=== PATIENT | male | born 2000 | race African-American/Black ===

== ENCOUNTER 2020-10-30 01:34 | Emergency (ER) | payer OTHER, SELFPAY ==
[2020-10-30] MEDS ORDERED: NA CHLORIDE 0.9% 1,000 ML ONE (02:54)
[2020-10-30 02:56] LABS: Absolute Lymphocytes (CBC) 1.6 K/uL (0.7-4.9); Basophils % 0.4 % (0-1.3); Hematocrit 39.7 % (39.6-49.0); Lymphocytes % 19.8 % (15.3-44.8); MPV 10.3 fL (7.6-11.3); RBC Red Blood Cell Count 4.53 M/uL (4.33-5.43)
[2020-10-30 02:58] LABS: Protime INR 1.08
[2020-10-30 03:07] LABS: ALT/SGPT 15 U/L (12-78); AST/SGOT 13 U/L (15-37); Albumin 4.3 g/dL (3.4-5.0); Alkaline Phosphatase 76 U/L (45-117); BUN Blood Urea Nitrogen 7 mg/dL (7-18); Bicarbonate 30 mmol/L (21-32); Bilirubin Direct 0.3 mg/dL (0-0.2); Glucose Level 92 mg/dL (74-106); Magnesium 1.9 mg/dL (1.8-2.4); NT PRO-BNP 19 pg/mL (<125); Potassium 3.4 mmol/L (3.5-5.1); Protein, Total 7.9 g/dL (6.4-8.2); Sodium Level 142 mmol/L (136-145); Troponin (Emerg Dept Use Only) < 0.02 ng/mL (0.0-0.045)
[2020-10-30 03:17] LABS: Urine Blood Negative (Negative); Urine Glucose Negative (Negative); Urine Protein Trace (Negative)
[2020-10-30 03:54] LABS: Barbiturates NEGATIVE (NEGATIVE); Benzodiazepines NEGATIVE (NEGATIVE); Cocaine NEGATIVE (NEGATIVE); METHAMPHETAM NEGATIVE (NEGATIVE); Methadone NEGATIVE (NEGATIVE); Opiates NEGATIVE (NEGATIVE); Phencyclidine NEGATIVE (NEGATIVE); THC Cannibis NEGATIVE (NEGATIVE)
[2020-10-30] MEDS ORDERED: LORazepam 2 MG/ML VIAL ONE (04:11)
[2020-10-30] MEDS ORDERED: POTASSIUM CL SA 10 MEQ TAB PO ONE (04:12)
[2020-10-30 04:15] LABS: Urine Bacteria <20 /HPF (NONE SEEN); Urine RBC <5 /HPF (NONE SEEN); Urine Urothelial Cells <5 /HPF (NONE SEEN)
--- NOTE | 2020-10-30 04:39 | EDPHYS ---
Physician Documentation [facility] Name: Yong Rojas Age: 20 yrs Sex: Male : 2000 Arrival Date: 10/30/2020 Time: 01:48 Bed 13 Private MD: ED Physician Waldemar Carvalho HPI: 10/30 02:34 This 20 yrs old Black Male presents to ER via Ambulatory with unknown complaint. pkl 02:34 The patient or guardian reports chest pain that is located primarily in the substernal pkl area. The pain does not radiate. Associated signs and symptoms: Pertinent positives: shortness of breath, numbness both arms. The chest pain is described as dull. Historical: - Allergies: 02:05 No Known Allergies; em - PMHx: 02:05 None; em - PSHx: 02:05 None; em - Immunization history:: Adult Immunizations not up to date. - Social history:: Smoking status: Patient denies any tobacco usage or history of. ROS: 02:34 Eyes: Negative for injury, pain, redness, and discharge, ENT: Negative for injury, pkl pain, and discharge, Neck: Negative for injury, pain, and swelling. 02:34 Cardiovascular: Positive for chest pain. 02:34 Respiratory: Positive for shortness of breath. 02:34 Abdomen/GI: Negative for abdominal pain, nausea, vomiting, and diarrhea. 02:34 Back: Negative for acute changes. 02:34 : Negative for urinary symptoms. 02:34 MS/extremity: Negative for acute changes. 02:34 Skin: Negative for rash. 02:34 Neuro: Negative for altered mental status, loss of consciousness. Exam: 02:34 Head/Face: Normocephalic, atraumatic. Eyes: Pupils equal round and reactive to light, pkl extra-ocular motions intact. Lids and lashes normal. Conjunctiva and sclera are non-icteric and not injected. Cornea within normal limits. Periorbital areas with no swelling, redness, or edema. ENT: Nares patent. No nasal discharge, no septal abnormalities noted. Tympanic membranes are normal and external auditory canals are clear. Oropharynx with no redness, swelling, or masses, exudates, or evidence of obstruction, uvula midline. Mucous membranes moist. Neck: Trachea midline, no thyromegaly or masses palpated, and no cervical lymphadenopathy. Supple, full range of motion without nuchal rigidity, or vertebral point tenderness. No Meningismus. Chest/axilla: Normal chest wall appearance and motion. Nontender with no deformity. No lesions are appreciated. Cardiovascular: Regular rate and rhythm with a normal S1 and S2. No gallops, murmurs, or rubs. Normal PMI, no JVD. No pulse deficits. Respiratory: Lungs have equal breath sounds bilaterally, clear to auscultation and percussion. No rales, rhonchi or wheezes noted. No increased work of breathing, no retractions or nasal flaring. Abdomen/GI: Soft, non-tender, with normal bowel sounds. No distension or tympany. No guarding or rebound. No evidence of tenderness throughout. Back: No spinal tenderness. No costovertebral tenderness. Full range of motion. Skin: Warm, dry with normal turgor. Normal color with no rashes, no lesions, and no evidence of cellulitis. MS/ Extremity: Pulses equal, no cyanosis. Neurovascular intact. Full, normal range of motion. Neuro: Awake and alert, GCS 15, oriented to person, place, time, and situation. Cranial nerves II-XII grossly intact. Motor strength 5/5 in all extremities. Sensory grossly intact. Cerebellar exam normal. Normal gait. Vital Signs: 02:03 BP 126 / 86; Pulse 87; Resp 20; Temp 98.1; Pulse Ox 96% on R/A; Height 5 ft. 8 in. em (172.72 cm); Pain 10/10; 03:00 BP 141 / 80; Pulse 56; Resp 18; Pulse Ox 98% on R/A; jb4 04:00 BP 125 / 82; Pulse 63; Resp 14; Pulse Ox 99% on R/A; jb4 MDM: 02:26 Patient medically screened. pkl 04:35 Data reviewed: vital signs, nurses notes, lab test result(s), EKG, radiologic studies, pkl plain films. ED course: Discussed lab, EKG and Imaging studies with patient. Advised to follow up with PCP in 2 to 3 days. Patient understood instructions. 10/30 02:17 Order name: Basic Metabolic Panel [facility] 10/30 02:17 Order name: CBC with Diff; Complete Time: 03:19 [facility] 10/30 02:17 Order name: LFT's; Complete Time: 03:19 4 10/30 02:17 Order name: Magnesium; Complete Time: 03:19 4 10/30 02:17 Order name: NT PRO-BNP; Complete Time: 03:19 4 10/30 02:17 Order name: PT-INR; Complete Time: 03:19 4 10/30 02:17 Order name: Troponin (emerg Dept Use Only); Complete Time: 03:19 4 10/30 02:17 Order name: Basic Metabolic Panel; Complete Time: 03:19 EDMS 10/30 02:33 Order name: D-Dimer pkl 10/30 02:33 Order name: UDS pkl 10/30 02:34 Order name: Urine Drug Screen; Complete Time: 03:59 EDMS 10/30 02:37 Order name: D-Dimer; Complete Time: 03:19 EDMS 10/30 03:16 Order name: Urine Dipstick-Ancillary; Complete Time: 03:19 EDMS 10/30 02:17 Order name: XRAY Chest (1 view) jb4 10/30 02:17 Order name: EKG; Complete Time: 02:18 10/30 02:17 Order name: Cardiac monitoring; Complete Time: 02:34 10/30 02:17 Order name: EKG - Nurse/Tech; Complete Time: 02:34 10/30 02:17 Order name: IV Saline Lock; Complete Time: 02:34 10/30 02:17 Order name: Labs collected and sent; Complete Time: 02:34 10/30 02:17 Order name: O2 Per Protocol; Complete Time: 02:34 10/30 02:17 Order name: O2 Sat Monitoring; Complete Time: 02:34 10/30 03:19 Order name: Urine Culture tt3 10/30 03:19 Order name: Urine Microscopic Only; Complete Time: 04:34 tt3 Administered Medications: 02:34 Drug: NS 0.9% 1000 ml Route: IV; Rate: 1000 ml; Site: right antecubital; jb4 03:30 Follow up: Response: No adverse reaction; IV Status: Completed infusion; IV Intake: jb4 1000ml 03:55 Drug: Ativan (LORazepam) 1 mg Route: IVP; Site: right antecubital; jb4 05:00 Follow up: Response: No adverse reaction; Marked relief of symptoms jb4 03:55 Drug: K-Dur (potassium chloride) 20 mEq Route: PO; jb4 06:13 Follow up: Response: No adverse reaction; Marked relief of symptoms jb4 04:48 Drug: Cipro (ciprofloxacin) 500 mg Route: PO; jb4 06:13 Follow up: Response: No adverse reaction jb4 Disposition Summary: 10/30/20 04:38 Discharge Ordered Location: Home pkl Problem: new pkl Symptoms: have improved pkl Condition: Stable pkl Diagnosis - Chest pain. Urinary tract infection pkl Followup: pkl - With: Private Physician - When: 2 - 3 days - Reason: Re-evaluation by your physician Discharge Instructions: - Discharge Summary Sheet pkl Forms: - Medication Reconciliation Form pkl - Thank You Letter pkl - Antibiotic Education pkl - Prescription Opioid Use pkl Prescriptions: - Cipro 500 mg Oral Tablet - take 1 tablet by ORAL route every 12 hours for 5 days; 10 tablet; Refills: 0, pkl Product Selection Permitted Signatures: Dispatcher [employer] Waldemar Greer MD MD pkl Elmer Rees, RN RN Pablo Villanueva RN RN jb4 Corrections: (The following items were deleted from the chart) 02:37 02:33 D-Dimer ordered. EDMS CARCAMO
--- NOTE | 2020-10-30 04:39 | ER ---
Nurse's Notes [facility] Name: Yong Rojas Age: 20 yrs Sex: Male : 2000 Arrival Date: 10/30/2020 Time: 01:48 Bed 13 Private MD: Diagnosis: Chest pain. Urinary tract infection Presentation: 10/30 02:03 Chief complaint: Patient states: chest pain that started while walking, shortness of em breath, arms feel numb, denies cough, N/V or fever. Coronavirus screen: Client denies travel out of the [place] in the last 14 days. Ebola Screen: Patient negative for fever greater than or equal to 101.5 degrees Fahrenheit, and additional compatible Ebola Virus Disease symptoms Patient denies exposure to infectious person. Patient denies travel to an Ebola-affected area in the 21 days before illness onset. No symptoms or risks identified at this time. Initial Sepsis Screen: Does the patient meet any 2 criteria? No. Patient's initial sepsis screen is negative. Does the patient have a suspected source of infection? No. Patient's initial sepsis screen is negative. Risk Assessment: Do you want to hurt yourself or someone else? Patient reports no desire to harm self or others. Onset of symptoms was October 30, 2020. 02:03 Method Of Arrival: Ambulatory em 02:03 Acuity: DARLYN 3 em Historical: - Allergies: 02:05 No Known Allergies; em - PMHx: 02:05 None; em - PSHx: 02:05 None; em - Immunization history:: Adult Immunizations not up to date. - Social history:: Smoking status: Patient denies any tobacco usage or history of. Screenin:22 Abuse screen: Denies threats or abuse. Nutritional screening: No deficits noted. ca1 Tuberculosis screening: No symptoms or risk factors identified. Fall Risk None identified. Assessment: 02:20 General: Appears in no apparent distress. uncomfortable, Behavior is calm, cooperative, jb4 appropriate for age. Pain: Complains of pain in chest Pain does not radiate. Pain currently is 10 out of 10 on a pain scale. Neuro: Level of Consciousness is awake, alert, obeys commands, Oriented to person, place, time, situation. Cardiovascular: Patient's skin is warm and dry. Respiratory: Airway is patent Respiratory effort is even, unlabored, Respiratory pattern is regular, symmetrical. GI: No signs and/or symptoms were reported involving the gastrointestinal system. : No signs and/or symptoms were reported regarding the genitourinary system. EENT: No signs and/or symptoms were reported regarding the EENT system. Derm: Skin is intact, Skin is pink, warm \T\ dry. Musculoskeletal: Circulation, motion, and sensation intact. Range of motion: intact in all extremities. 03:30 Reassessment: Patient appears in no apparent distress at this time. Patient and/or jb4 family updated on plan of care and expected duration. Pain level reassessed. Patient is alert, oriented x 3, equal unlabored respirations, skin warm/dry/pink. 04:56 Reassessment: Patient appears in no apparent distress at this time. Patient and/or jb4 family updated on plan of care and expected duration. Pain level reassessed. Patient is alert, oriented x 3, equal unlabored respirations, skin warm/dry/pink. D/c pending ride home. Patient denies pain at this time. Patient states feeling better. 06:13 Reassessment: Patient appears in no apparent distress at this time. Patient and/or jb4 family updated on plan of care and expected duration. Pain level reassessed. Patient is alert, oriented x 3, equal unlabored respirations, skin warm/dry/pink. Pt attempting to contact ride home. Vital Signs: 02:03 BP 126 / 86; Pulse 87; Resp 20; Temp 98.1; Pulse Ox 96% on R/A; Height 5 ft. 8 in. em (172.72 cm); Pain 10/10; 03:00 BP 141 / 80; Pulse 56; Resp 18; Pulse Ox 98% on R/A; jb4 04:00 BP 125 / 82; Pulse 63; Resp 14; Pulse Ox 99% on R/A; jb4 ED Course: 01:48 Patient arrived in ED. em 02:05 Triage completed. em 02:05 Arm band placed on. em 02:14 EKG done, by ED staff, reviewed by Pablo Low RN. ca1 02:17 Pablo Low, RN is Primary Nurse. jb4 02:20 Initial lab(s) drawn, by va, sent to lab. Inserted saline lock: 18 gauge in right jb4 antecubital area, using aseptic technique. Blood collected. 02:22 Patient has correct armband on for positive identification. Placed in gown. Bed in low ca1 position. Call light in reach. Adult w/ patient. fisher eel on. Pulse ox on. NIBP on. 02:25 Waldemar Carvalho MD is Attending Physician. pkl 02:32 XRAY Chest (1 view) In Process Unspecified. EDMS 06:13 No provider procedures requiring assistance completed. IV discontinued, intact, jb4 bleeding controlled, No redness/swelling at site. Pressure dressing applied. Administered Medications: 02:34 Drug: NS 0.9% 1000 ml Route: IV; Rate: 1000 ml; Site: right antecubital; jb4 03:30 Follow up: Response: No adverse reaction; IV Status: Completed infusion; IV Intake: jb4 1000ml 03:55 Drug: Ativan (LORazepam) 1 mg Route: IVP; Site: right antecubital; jb4 05:00 Follow up: Response: No adverse reaction; Marked relief of symptoms jb4 03:55 Drug: K-Dur (potassium chloride) 20 mEq Route: PO; jb4 06:13 Follow up: Response: No adverse reaction; Marked relief of symptoms jb4 04:48 Drug: Cipro (ciprofloxacin) 500 mg Route: PO; jb4 06:13 Follow up: Response: No adverse reaction jb4 Intake: 03:30 IV: 1000ml; Total: 1000ml. jb4 Outcome: 04:38 Discharge ordered by . pkl 08:28 Patient left the ED. tr6 Signatures: Dispatcher [employer] EDTX Waldemar Carvalho MD MD pkl Elmer Rees RN Pablo Adrian RN RN jb4 Rosalee Calvin RN RN [facility] Denise Cerrato RN RN tr6
[2020-10-30] MEDS ORDERED: CIPROFLOXACIN HCL 500 MG TAB ONE (05:07)
--- NOTE | 2020-10-30 07:27 | RAD REPORT ---
EXAM DESCRIPTION: RAD - Chest Single View - 10/30/2020 2:33 am CLINICAL HISTORY: CHEST PAIN COMPARISON: No comparisons FINDINGS: No evidence of edema or pneumonia. The heart size is within normal limits.No acute osseous abnormality. No significant pleural effusions or pneumothorax. IMPRESSION: No acute cardiopulmonary disease.
[2020-10-30 08:37] VITALS: TEMP 98.1
[2020-10-30 08:39] VITALS: BP 125/82; O2SAT 99
== END 2020-10-30 08:28 | disposition home or self-care (01) ==
LOC: ER 01:34
DX: N39.0 Urinary tract infection, site not specified (principal)
CPT/HCPCS: 36415; 71045; 80048; 80076; 80307; 81003; 81015; 83735; 83880; 84484; 85025; 85379; 85610; 87086; 87088; 93005; 96361; 96374; 99284; J7030

== ENCOUNTER 2021-10-08 06:55 | Emergency (ER) | payer SELFPAY ==
--- NOTE | 2021-10-08 09:12 | RAD REPORT ---
EXAM DESCRIPTION: US - Extremity Nonvascular Complete - 10/08/2021 8:10 am CLINICAL HISTORY: Right inguinal pain COMPARISON: None FINDINGS: 1.7 x 1.5 centimeter structure is present within the superficial tissues of the right the groin. It is heterogeneous. It contains a 1.2 x 0.4 centimeter mostly sonolucent collection which may be fluid. Increased vascularity is present. Several lymph nodes with echogenic centers are present within the right groin probably reactive in na ture IMPRESSION: 1.7 x 1.5 centimeter heterogeneous structure within the superficial tissues of the right groin which is palpable. It contains small amount of fluid. Of this may represent a developing absce ss and should be correlated clinically.
[2021-10-08] MEDS ORDERED: LIDOCAINE 1% 20 ML MDV ONE (09:28)
--- NOTE | 2021-10-08 09:48 | ER ---
Nurse's Notes [facility] Name: Yong Rojas Age: 21 yrs Sex: Male : 2000 Arrival Date: 10/08/2021 Time: 06:56 Bed 11 Private MD: Diagnosis: Cutaneous abscess of groin Presentation: 10/08 07:42 Chief complaint: Patient states: lump in right groin area since Friday , has been iw tender, thought it was an ingrown hair, denies pain or lump in testicle. Coronavirus screen: At this time, the client does not indicate any symptoms associated with coronavirus-19. Ebola Screen: Patient negative for fever greater than or equal to 101.5 degrees Fahrenheit, and additional compatible Ebola Virus Disease symptoms Patient denies exposure to infectious person. Patient denies travel to an Ebola-affected area in the 21 days before illness onset. No symptoms or risks identified at this time. Initial Sepsis Screen: Does the patient meet any 2 criteria? No. Patient's initial sepsis screen is negative. Does the patient have a suspected source of infection? No. Patient's initial sepsis screen is negative. Risk Assessment: Do you want to hurt yourself or someone else? Patient reports no desire to harm self or others. Onset of symptoms was October 06, 2021. 07:42 Method Of Arrival: Ambulatory iw 07:42 Acuity: DARLYN 3 iw 07:42 Acuity: DARLYN 4 iw Historical: - Allergies: 07:44 No Known Allergies; iw - Home Meds: 07:44 None [Active]; iw - PMHx: 07:44 None; iw - PSHx: 07:44 None; iw - Immunization history:: Client reports having NOT received the Covid vaccine. - Social history:: Smoking status: Patient denies any tobacco usage or history of. - Family history:: not pertinent. - Hospitalizations: : No recent hospitalization is reported. Vital Signs: 07:42 BP 139 / 82; Pulse 54; Resp 16; Temp 98.4; Pulse Ox 99% on R/A; iw ED Course: 06:56 Patient arrived in ED. rg4 07:44 Triage completed. iw 07:44 Arm band placed on. iw 07:47 Zane Darnell MD is Attending Physician. rn 08:12 Extremity Nonvascular Complete In Process Unspecified. EDMS 08:24 Reny Francis, RN is Primary Nurse. iw 09:46 Karl Owusu MD is Referral Physician. rn Administered Medications: No medications were administered Outcome: 09:47 Discharge ordered by . rn 10:50 Patient left the ED. iw Signatures: Dispatcher [employer] EDMS Reny Francis RN RN iw Nieto, Roman, MD MD rn Garcia, Rubi rg4
--- NOTE | 2021-10-08 09:48 | EDPHYS ---
Physician Documentation [facility] Name: Yong Rojas Age: 21 yrs Sex: Male : 2000 Arrival Date: 10/08/2021 Time: 06:56 Bed 11 Private MD: ED Physician Zane Darnell HPI: 10/08 08:01 This 21 yrs old Black Male presents to ER via Ambulatory with complaints of Lump On rn Pelvis. 08:01 the patient presents with a swollen area of the right groin. Description: swollen, rn tense. Onset: The symptoms/episode began/occurred 3 day(s) ago. Possible cause(s): unknown. Associated signs and symptoms: Pertinent positives: swelling, Pertinent negatives: fever. Modifying factors: the symptoms are alleviated by nothing, the symptoms are aggravated by pressure, sitting, touching. Severity of symptoms: At their worst the symptoms were moderate, in the emergency department the symptoms are unchanged. The patient has not experienced similar symptoms in the past. The patient has not recently seen a physician. Reports right groin pain and swelling, began a few days ago, growing and more painful. NO fever. Has never had abscess before.. Historical: - Allergies: 07:44 No Known Allergies; iw - Home Meds: 07:44 None [Active]; iw - PMHx: 07:44 None; iw - PSHx: 07:44 None; iw - Immunization history:: Client reports having NOT received the Covid vaccine. - Social history:: Smoking status: Patient denies any tobacco usage or history of. - Family history:: not pertinent. - Hospitalizations: : No recent hospitalization is reported. ROS: 08:01 Constitutional: Negative for fever, chills, and weight loss, Cardiovascular: Negative rn for chest pain, palpitations, and edema, Respiratory: Negative for shortness of breath, cough, wheezing, and pleuritic chest pain, Abdomen/GI: Negative for abdominal pain, nausea, vomiting, diarrhea, and constipation, Back: Negative for injury and pain, : Negative for injury, bleeding, discharge, and swelling, MS/Extremity: Negative for injury and deformity, Skin: + right groin swelling and pain Neuro: Negative for headache, weakness, numbness, tingling, and seizure. Exam: 08:01 Constitutional: This is a well developed, well nourished patient who is awake, alert, rn and in no acute distress. Abdomen/GI: soft, non-tender Male : Normal genitalia with no discharge or lesions. Skin: + right groin with ovoid shaped area of fluctuance and tenderness, no drainage noted MS/ Extremity: Pulses equal, no cyanosis. Neurovascular intact. Full, normal range of motion. Equal circumference. Vital Signs: 07:42 BP 139 / 82; Pulse 54; Resp 16; Temp 98.4; Pulse Ox 99% on R/A; iw Procedures: 09:46 I \T\ D: Incision and drainage was performed for an abscess of the right groin Prepped rn with Betadine, Anesthetized with 3 ml's 1% Lidocaine. Incised with #11 blade. Drained moderate amount purulent fluid. serosanguinous fluid. Packed with iodoform gauze, Dressing: non-Adherent dressing, the patient tolerated the procedure well. MDM: 07:47 Patient medically screened. rn 09:46 Differential diagnosis: abscess. Data reviewed: vital signs, nurses notes, radiologic rn studies, ultrasound, and as a result, I will discharge patient. Counseling: I had a detailed discussion with the patient and/or guardian regarding: the historical points, exam findings, and any diagnostic results supporting the discharge/admit diagnosis, radiology results, the need for outpatient follow up, to return to the emergency department if symptoms worsen or persist or if there are any questions or concerns that arise at home. Response to treatment: the patient's symptoms have mildly improved after treatment, and as a result, I will discharge patient. Special discussion: I discussed with the patient/guardian in detail that at this point there is no indication for admission to the hospital. It is understood, however, that if the symptoms persist or worsen the patient needs to return immediately for re-evaluation. 10/08 08:12 Order name: Extremity Nonvascular Complete; Complete Time: 09:14 EDMS 10/08 09:20 Order name: Incision \T\ Drainage Setup; Complete Time: 10:00 rn Administered Medications: No medications were administered Disposition Summary: 10/08/21 09:47 Discharge Ordered Location: Home rn Problem: new rn Symptoms: have improved rn Condition: Stable rn Diagnosis - Cutaneous abscess of groin rn Followup: rn - With: Karl Owusu MD - When: 2 - 3 days - Reason: Recheck today's complaints, Re-evaluation by your physician Discharge Instructions: - Discharge Summary Sheet rn - Skin Abscess rn - Incision and Drainage rn - Wound Packing rn - Incision and Drainage, Care After rn Forms: - Medication Reconciliation Form rn - Thank You Letter rn - Antibiotic cleaner furniture - Prescription Opioid Use rn - Work release form Prescriptions: - Clindamycin HCl 300 mg Oral Capsule - take 1 capsule by ORAL route every 6 hours for 10 days; 40 capsule; Refills: 0, rn Product Selection Permitted - Tramadol 50 mg Oral Tablet - take 1 tablet by ORAL route every 8 hours as needed; 12 tablet; Refills: 0, rn Product Selection Permitted Signatures: Dispatcher [employer] Reny Randolph RN RN iw Zane Darnell MD MD internal carver: (The following items were deleted from the chart) 08:12 07:55 Extrmty Nonvasular Limited+[id number] ordered. EDMS EDMS
[2021-10-08 11:18] VITALS: BP 139/82; TEMP 98.4; O2SAT 99
== END 2021-10-08 10:50 | disposition home or self-care (01) ==
LOC: ER 06:55
PROC: 0H9AXZZ Drainage of Inguinal Skin, External Approach (ICD-10-PCS; principal; 2021-10-08)
DX: L02.214 Cutaneous abscess of groin (principal)
CPT/HCPCS: 76881; 99282

== ENCOUNTER 2021-12-17 22:44 | Emergency (ER) | payer SELFPAY ==
[2021-12-17] MEDS ORDERED: HYDROCOD 2.5mg-ACETAMIN 108mg/5mL Soln ONE (23:38)
[2021-12-17] MEDS ORDERED: IBUPROFEN 400 MG TAB ONE (23:39)
[2021-12-17] MEDS ORDERED: NA CHLORIDE 0.9% 1,000 ML ONE (23:39)
[2021-12-18 00:21] LABS: Absolute Lymphocytes (CBC) 0.9 K/uL (0.7-4.9); Hematocrit 44.6 % (39.6-49.0); Lymphocytes % 7.5 % (15.3-44.8); MCV 86.1 fL (80-100); RBC Red Blood Cell Count 5.18 M/uL (4.33-5.43)
[2021-12-18 00:27] LABS: Potassium 3.5 mmol/L (3.5-5.1)
[2021-12-18] MEDS ORDERED: dexAMETHasone 10 MG/ML VIAL ONE (01:14)
[2021-12-18] MEDS ORDERED: CLINDAMYCIN 900MG/D5W 900 MG/50 ML IVPB IV ONE (01:14)
--- NOTE | 2021-12-18 01:40 | ER ---
Nurse's Notes [facility] Name: Yong Rojas Age: 21 yrs Sex: Male : 2000 Arrival Date: 12/17/2021 Time: 22:46 Bed 16 Private MD: Diagnosis: Acute tonsillitis, unspecified Presentation: 12/17 22:56 Chief complaint: Patient states: Pt reports sore throat and fever since 0800 this kb3 morning. Has taken no OTC meds. Coronavirus screen: Vaccine status: Patient reports being unvaccinated. Client denies travel out of the [place] in the last 14 days. Ebola Screen: Patient negative for fever greater than or equal to 101.5 degrees Fahrenheit, and additional compatible Ebola Virus Disease symptoms Patient denies exposure to infectious person. Patient denies travel to an Ebola-affected area in the 21 days before illness onset. Initial Sepsis Screen: Does the patient meet any 2 criteria? No. Patient's initial sepsis screen is negative. Does the patient have a suspected source of infection? No. Patient's initial sepsis screen is negative. Risk Assessment: Do you want to hurt yourself or someone else? Patient reports no desire to harm self or others. Onset of symptoms was December 17, 2021 at 08:00. 22:56 Method Of Arrival: Ambulatory kb3 22:56 Acuity: DARLYN 4 kb3 Triage Assessment: 22:59 General: Appears in no apparent distress. uncomfortable, Behavior is calm, cooperative. kb3 Pain: Complains of pain in neck. EENT: Throat is reddened has patchy exudate has enlarged tonsils bilaterally. Historical: - Allergies: 22:59 No Known Allergies; kb3 - Home Meds: 22:59 None [Active]; kb3 - PMHx: 22:59 None; kb3 - PSHx: 22:59 None; kb3 - Immunization history:: Adult Immunizations up to date, Client reports having NOT received the Covid vaccine. Last tetanus immunization: up to date. - Social history:: Smoking status: Reported history of juuling and/or vaping. Patient uses alcohol, but reports only rare drinking. occasionally. Screenin:05 Abuse screen: Denies threats or abuse. Nutritional screening: No deficits noted. jb4 Tuberculosis screening: No symptoms or risk factors identified. Fall Risk None identified. Assessment: 23:05 General: See triage note. jb4 12/18 00:30 Reassessment: Patient appears in no apparent distress at this time. Patient and/or jb4 family updated on plan of care and expected duration. Pain level reassessed. Patient is alert, oriented x 3, equal unlabored respirations, skin warm/dry/pink. 02:08 Reassessment: Patient appears in no apparent distress at this time. Patient and/or jb4 family updated on plan of care and expected duration. Pain level reassessed. Patient is alert, oriented x 3, equal unlabored respirations, skin warm/dry/pink. Patient states feeling better. Vital Signs: 12/17 22:56 BP 112 / 60; Pulse 85; Resp 20; Pulse Ox 100% ; Weight 74.39 kg; Height 5 ft. 9 in. kb3 (175.26 cm); Pain 10/10; 23:04 Temp 102.2; kb3 12/18 02:09 BP 119 / 58; Pulse 78; Resp 16; Temp 98.9(O); Pulse Ox 97% on R/A; jb4 12/17 22:56 Body Mass Index 24.22 (74.39 kg, 175.26 cm) kb3 ED Course: 12/17 22:46 Patient arrived in ED. jj6 22:51 [facility] cp 22:51 Nicolás Victor MD is Attending Physician. cp 22:59 Triage completed. kb3 22:59 Arm band placed on right wrist. kb3 23:05 Patient has correct armband on for positive identification. Bed in low position. Call jb4 light in reach. Side rails up X 1. Client placed on continuous cardiac and pulse oximetry monitoring. NIBP monitoring applied. 23:40 COVID-19 SARS RT PCR (Document "Date of Onset" if Symptomatic) Sent. tw5 23:40 Strep Sent. tw5 23:40 Influenza Screen (a \\T\\ B) Sent. tw5 23:40 COVID swab sent to lab. Flu and/or RSV swab sent to lab. Strep swab sent to lab. tw5 23:42 Initial lab(s) drawn, by ks, sent to lab. Inserted saline lock: 20 gauge in left wm antecubital area, using aseptic technique. Blood collected. 23:42 [place] Screen Profile Sent. 23:42 BMP Sent. 23:42 CBC with Diff Sent. 12/18 00:58 Pablo Low, RN is Primary Nurse. jb4 01:39 Chacha Abbott MD is Referral Physician. cp 02:10 No provider procedures requiring assistance completed. IV discontinued, intact, jb4 bleeding controlled, No redness/swelling at site. Pressure dressing applied. Administered Medications: 12/17 23:39 Drug: NS 0.9% 1000 ml Route: IV; Rate: 1 bolus; Site: left antecubital; tw5 23:40 Drug: Lortab (HYDROcodone-acetaminophen) Liquid 15 ml Route: PO; tw5 23:40 Drug: Ibuprofen 800 mg Route: PO; tw5 12/18 01:16 Drug: Clindamycin 900 mg Route: IVPB; Infused Over: 30 mins; Site: left antecubital; jb4 01:16 Drug: Decadron - Dexamethasone 10 mg Route: IVP; Site: left antecubital; jb4 Medication: 02:09 VIS not applicable for this client. jb4 Outcome: 01:40 Discharge ordered by . cp 02:10 Discharged to home ambulatory, with family. jb4 02:10 Condition: stable 02:10 Discharge instructions given to patient, Instructed on discharge instructions, follow up and referral plans. medication usage, Demonstrated understanding of instructions, follow-up care, medications, Prescriptions given X 3. 02:11 Patient left the ED. jb4 Signatures: Nicolás Bustos PA PA cp Pablo Low, RN RN jb4 Babs Sky Denise Pack tw5 Grace Heller jj6 Shey Bingham, RN RN kb3
--- NOTE | 2021-12-18 01:40 | EDPHYS ---
Physician Documentation [facility] Name: Yong Rojas Age: 21 yrs Sex: Male : 2000 Arrival Date: 12/17/2021 Time: 22:46 Bed 16 Private MD: ED Physician Nicolás Victor HPI: 12/17 23:30 This 21 yrs old Black Male presents to ER via Ambulatory with complaints of Sore cp Throat, Difficulty Swallowing, Fever. 23:30 The patient presents with sore throat. The patient describes throat pain as constant. cp Onset: The symptoms/episode began/occurred this morning. Severity of symptoms: in the emergency department the symptoms are unchanged, despite home interventions. Associated signs and symptoms: Pertinent positives: fever, headache, body aches, Pertinent negatives chest pain, cough, diarrhea, dysphagia, fever, vomiting. Historical: - Allergies: 22:59 No Known Allergies; kb3 - Home Meds: 22:59 None [Active]; kb3 - PMHx: 22:59 None; kb3 - PSHx: 22:59 None; kb3 - Immunization history:: Adult Immunizations up to date, Client reports having NOT received the Covid vaccine. Last tetanus immunization: up to date. - Social history:: Smoking status: Reported history of juuling and/or vaping. Patient uses alcohol, but reports only rare drinking. occasionally. ROS: 23:35 Constitutional: Positive for body aches, fever, Negative for poor PO intake. cp 23:35 Eyes: Negative for injury, pain, redness, and discharge. cp 23:35 ENT: Positive for sore throat, Negative for drainage from ear(s), ear pain, difficulty swallowing, difficulty handling secretions. 23:35 Neck: Negative for stiffness. 23:35 Cardiovascular: Negative for chest pain, palpitations. 23:35 Respiratory: Negative for cough, shortness of breath, wheezing. 23:35 Abdomen/GI: Negative for abdominal pain, vomiting, diarrhea, constipation. 23:35 Skin: Negative for rash. 23:35 Neuro: Positive for headache, Negative for altered mental status, weakness. 23:35 All other systems are negative. Exam: 23:40 Constitutional: The patient appears in no acute distress, alert, awake, non-toxic, well cp developed, well nourished, uncomfortable. 23:40 Head/Face: Normocephalic, atraumatic. cp 23:40 Eyes: Periorbital structures: appear normal, Conjunctiva: normal, no exudate, no injection, Sclera: no appreciated abnormality, Lids and lashes: appear normal, bilaterally. 23:40 ENT: External ear(s): are unremarkable, Ear canal(s): are normal, clear, TM's: dullness, bilaterally, Nose: is normal, Mouth: Lips: moist, Oral mucosa: moist, Posterior pharynx: Airway: no evidence of obstruction, patent, Tonsils: bilaterally enlarged, with erythema, with exudate, Uvula: midline, swelling, is not appreciated, erythema, that is moderate. 23:40 Neck: ROM/movement: is normal, is supple, no meningismus, no nuchal rigidity, Lymph nodes: lymphadenopathy is appreciated, anterior cervical nodes. 23:40 Chest/axilla: Inspection: normal, Palpation: is normal, no crepitus, no tenderness. 23:40 Cardiovascular: Rate: normal, Rhythm: regular. 23:40 Respiratory: the patient does not display signs of respiratory distress, Respirations: normal, no use of accessory muscles, no retractions, labored breathing, is not present, Breath sounds: are clear throughout, no decreased breath sounds, no stridor, no wheezing. 23:40 Abdomen/GI: Inspection: abdomen appears normal, Palpation: abdomen is soft and non-tender, in all quadrants. 23:40 Back: pain, is absent, ROM is normal. 23:40 Skin: cellulitis, is not appreciated, no rash present. 23:40 Neuro: Orientation: to person, place \\T\\ time. Mentation: is normal, Motor: moves all fours, strength is normal, Sensation: is normal. Vital Signs: 22:56 BP 112 / 60; Pulse 85; Resp 20; Pulse Ox 100% ; Weight 74.39 kg; Height 5 ft. 9 in. kb3 (175.26 cm); Pain 10/10; 23:04 Temp 102.2; kb3 12/18 02:09 BP 119 / 58; Pulse 78; Resp 16; Temp 98.9(O); Pulse Ox 97% on R/A; jb4 12/17 22:56 Body Mass Index 24.22 (74.39 kg, 175.26 cm) kb3 MDM: 09/05 23:02 Patient medically screened. 12/18 01:40 Data reviewed: vital signs, nurses notes, lab test result(s). cp 01:40 Differential diagnosis: laryngitis, bang's angina, mononucleosis, pharyngitis, cp tonsillitis, uvulitis. Counseling: I had a detailed discussion with the patient and/or guardian regarding: the historical points, exam findings, and any diagnostic results supporting the discharge/admit diagnosis, lab results, to return to the emergency department if symptoms worsen or persist or if there are any questions or concerns that arise at home. Response to treatment: the patient's symptoms have markedly improved after treatment, and as a result, I will discharge patient. 12/17 23:11 Order name: CBC with Diff; Complete Time: 00:35 cp 12/18 00:36 Interpretation: Normal except: WBC 12.20; PLT 138; RDW 11.7; NA% 87.6; LYM% 7.5; NEUT cp A 10.7. 12/17 23:11 Order name: BMP; Complete Time: 00:35 cp 12/18 00:36 Interpretation: Normal except: CO2 33; GFR 80. cp 12/17 23:11 Order name: [place] Screen Profile; Complete Time: 01:19 cp 12/18 01:19 Interpretation: Reviewed. 12/17 23:11 Order name: Strep; Complete Time: 00:35 cp 12/18 00:36 Interpretation: Reviewed. 12/17 23:11 Order name: Influenza Screen (a \\T\\ B); Complete Time: 00:35 12/17 23:11 Order name: COVID-19 SARS RT PCR (Document "Date of Onset" if Symptomatic); Complete cp Time: 01:19 12/18 01:19 Interpretation: Reviewed. 12/17 23:11 Order name: IV; Complete Time: 23:42 cp 12/18 00:34 Order name: Throat Culture EDMS Administered Medications: 12/17 23:39 Drug: NS 0.9% 1000 ml Route: IV; Rate: 1 bolus; Site: left antecubital; tw5 23:40 Drug: Lortab (HYDROcodone-acetaminophen) Liquid 15 ml Route: PO; tw5 23:40 Drug: Ibuprofen 800 mg Route: PO; tw5 09/06 01:16 Drug: Clindamycin 900 mg Route: IVPB; Infused Over: 30 mins; Site: left antecubital; jb4 01:16 Drug: Decadron - Dexamethasone 10 mg Route: IVP; Site: left antecubital; jb4 Disposition Summary: 12/18/21 01:40 Discharge Ordered Location: Home cp Problem: new cp Symptoms: have improved cp Condition: Stable cp Diagnosis - Acute tonsillitis, unspecified cp Followup: cp - With: Chacha Abbott MD - When: 2 - 3 days - Reason: Worsening of condition Discharge Instructions: - Discharge Summary Sheet cp - Tonsillitis cp - Form - Excuse from Work, School, or Physical Activity cp Forms: - Medication Reconciliation Form cp - Thank You Letter cp - Antibiotic Education cp - Prescription Opioid Use cp - Work release form jb4 Prescriptions: - Lidocaine Viscous - take 5 milliliter by ORAL route every 4-6 hours; 1 bottle; Refills: 0, Product cp Selection Permitted - Clindamycin HCl 300 mg Oral Capsule - take 1 capsule by ORAL route every 6 hours for 10 days; 40 capsule; Refills: 0, cp Product Selection Permitted - Ibuprofen 800 mg Oral Tablet - take 1 tablet by ORAL route every 8 hours As needed take with food; 30 tablet; cp Refills: 0, Product Selection Permitted Signatures: Dispatcher [employer] EDMS Nicolás Bustos PA PA cp Pablo Low, RN RN jb4 Denise Pack tw5 Shey Bingham RN RN kb3 Corrections: (The following items were deleted from the chart) 00:36 00:35 Normal except: WBC 12.20; PLT 138; RDW 11.7; NA% 87.6; LYM% 7.5. cp cp
[2021-12-18 05:00] VITALS: BP 119/58; TEMP 98.9; O2SAT 97
== END 2021-12-18 02:11 | disposition home or self-care (01) ==
LOC: ER 22:44
DX: J03.90 Acute tonsillitis, unspecified (principal)
CPT/HCPCS: 36415; 80048; 85025; 86308; 87070; 87081; 87804; 96374; 96375; 99284; J1100; J7030; U0003

== ENCOUNTER 2022-02-07 14:49 | Emergency (ER) | payer SELFPAY ==
--- NOTE | 2022-02-07 15:09 | EDPHYS ---
Physician Documentation [facility] Name: Yong Rojas Age: 21 yrs Sex: Male : 2000 Arrival Date: 02/07/2022 Time: 14:53 Bed Waiting Private MD: ED Physician Nicolás Victor HPI: 02/07 15:45 This 21 yrs old Black Male presents to ER via Ambulatory with complaints of Work Note. kb 15:45 Pt states he was seen here on the and hasn't been back to work. States he followed kb up and was given a work note from that dr, but his boss wouldn't accept it so he was told to come here to get one. The patient has not experienced similar symptoms in the past. The patient has not recently seen a physician. Historical: - Allergies: 15:08 No Known Allergies; ld1 - PSHx: 15:08 cyst; ld1 - Immunization history:: Adult Immunizations up to date. - Social history:: Smoking status: Patient denies any tobacco usage or history of. Patient/guardian denies using alcohol. ROS: 15:44 Constitutional: Negative for fever, chills, and weight loss. kb 15:44 All other systems are negative. Exam: 15:44 Constitutional: This is a well developed, well nourished patient who is awake, alert, kb and in no acute distress. Head/Face: Normocephalic, atraumatic. ENT: Moist Mucous membranes Cardiovascular: Regular rate and rhythm with a normal S1 and S2. No gallops, murmurs, or rubs. No pulse deficits. Respiratory: Respirations even and unlabored. No increased work of breathing. Talking in full sentences Skin: Warm, dry with normal turgor. Normal color. MS/ Extremity: Pulses equal, no cyanosis. Neurovascular intact. Full, normal range of motion. Neuro: Awake and alert, GCS 15, oriented to person, place, time, and situation. Moves all extremities. Normal gait. Psych: Awake, alert, with orientation to person, place and time. Behavior, mood, and affect are within normal limits. Vital Signs: 15:07 Pulse 65; Resp 18; Temp 97.6(TE); Pulse Ox 100% ; Weight 72.57 kg; Height 5 ft. 7 in. ld1 (170.18 cm); Pain 0/10; 15:08 BP 136 / 53; ld1 15:07 Body Mass Index 25.06 (72.57 kg, 170.18 cm) ld1 MDM: 14:54 Patient medically screened. [facility] 15:08 Patient medically screened. 15:44 Data reviewed: vital signs, nurses notes. Data interpreted: Pulse oximetry: on room air kb is 100 %. Interpretation: normal. Counseling: I had a detailed discussion with the patient and/or guardian regarding: the historical points, exam findings, and any diagnostic results supporting the discharge/admit diagnosis, the need for outpatient follow up, a family practitioner, to return to the emergency department if symptoms worsen or persist or if there are any questions or concerns that arise at home. Administered Medications: No medications were administered Disposition Summary: 02/07/22 15:09 Discharge Ordered Location: Home kb Condition: Stable kb Diagnosis - Encounter for issue of other medical certificate - work note kb Followup: kb - With: Emergency Department - When: As needed - Reason: Worsening of condition Followup: kb - With: Private Physician - When: 2 - 3 days - Reason: Recheck today's complaints, Continuance of care, Re-evaluation by your physician Discharge Instructions: - Discharge Summary Sheet kb Forms: - Work release form kb - Medication Reconciliation Form kb - Thank You Letter kb - Antibiotic Education kb - Prescription Opioid Use kb Signatures: Margaret Gomes, ELMO FAROOQ-Nicolás Montes MD MD cha Dibbern, Lauren, RN RN ld1
--- NOTE | 2022-02-07 15:09 | ER ---
Nurse's Notes [facility] Name: Yong Rojas Age: 21 yrs Sex: Male : 2000 Arrival Date: 02/07/2022 Time: 14:53 Bed Waiting Private MD: Diagnosis: Encounter for issue of other medical certificate-work note Presentation: 02/07 15:07 Chief complaint: Patient states: Pt reports being out of work on 01/20/2022 due to chest ld1 pains, dizziness. Doctor kept pt out of work for over a week. Now pt want's to return to work and needs a doctors note. Denies chest pain, dizziness, discomfort at time of triage. Coronavirus screen: At this time, the client does not indicate any symptoms associated with coronavirus-19. Ebola Screen: No symptoms or risks identified at this time. Initial Sepsis Screen: Does the patient meet any 2 criteria? No. Patient's initial sepsis screen is negative. Does the patient have a suspected source of infection? No. Patient's initial sepsis screen is negative. Risk Assessment: Do you want to hurt yourself or someone else? Patient reports no desire to harm self or others. Onset of symptoms was February 07, 2022. 15:07 Method Of Arrival: Ambulatory ld1 15:07 Acuity: DARLYN 5 ld1 Triage Assessment: 15:08 General: Appears in no apparent distress. comfortable, Behavior is calm, cooperative, ld1 appropriate for age. Pain: Denies pain. EENT: No signs and/or symptoms were reported regarding the EENT system. Neuro: Level of Consciousness is awake, alert, obeys commands, Oriented to person, place, time, situation. Cardiovascular: Capillary refill < 3 seconds Patient's skin is warm and dry. Respiratory: Airway is patent Respiratory effort is even, unlabored. GI: Abdomen is flat, non-distended. : No signs and/or symptoms were reported regarding the genitourinary system. Derm: No signs and/or symptoms reported regarding the dermatologic system. Musculoskeletal: No signs and/or symptoms reported regarding the musculoskeletal system. Historical: - Allergies: 15:08 No Known Allergies; ld1 - PSHx: 15:08 cyst; ld1 - Immunization history:: Adult Immunizations up to date. - Social history:: Smoking status: Patient denies any tobacco usage or history of. Patient/guardian denies using alcohol. Screenin:09 Abuse screen: Denies threats or abuse. Denies injuries from another. Nutritional ld1 screening: No deficits noted. Tuberculosis screening: No symptoms or risk factors identified. Fall Risk None identified. Assessment: 15:09 Reassessment: See triage assessment. ld1 Vital Signs: 15:07 Pulse 65; Resp 18; Temp 97.6(TE); Pulse Ox 100% ; Weight 72.57 kg; Height 5 ft. 7 in. ld1 (170.18 cm); Pain 0/10; 15:08 BP 136 / 53; ld1 15:07 Body Mass Index 25.06 (72.57 kg, 170.18 cm) ld1 ED Course: 14:53 Patient arrived in ED. mr 14:54 Margaret Gomes FNP-C [facility]. kb 14:54 Nicolás Victor MD is Attending Physician. kb 15:08 Triage completed. ld1 15:08 Arm band placed on right wrist. ld1 15:09 Patient has correct armband on for positive identification. Placed in gown. Bed in low ld1 position. Call light in reach. Side rails up X2. cardiac monitor on. Pulse ox on. NIBP on. Door closed. Noise minimized. Warm blanket given. 15:09 No provider procedures requiring assistance completed. Patient did not have IV access ld1 during this emergency room visit. Administered Medications: No medications were administered Medication: 15:09 VIS not applicable for this client. ld1 Outcome: 15:09 Discharge ordered by . kb 15:09 Discharged to home ambulatory. ld1 15:09 Condition: stable 15:09 Discharge instructions given to patient, Instructed on discharge instructions, follow up and referral plans. Demonstrated understanding of instructions, follow-up care. 15:16 Patient left the ED. ld1 Signatures: Margaret Gomes FNP-C FNP-Blanca García Claire Bland, RN RN ld1
[2022-02-07 15:46] VITALS: TEMP 97.6; O2SAT 100
[2022-02-07 15:47] VITALS: BP 136/53
== END 2022-02-07 15:16 | disposition home or self-care (01) ==
LOC: ER 14:49
DX: Z02.79 Encounter for issue of other medical certificate (principal)
CPT/HCPCS: 99284

== ENCOUNTER 2023-08-01 15:26 | Emergency (ER) | payer OTHER, SELFPAY ==
[2023-08-01] MEDS ORDERED: ONDANSETRON 4 MG (ODT) TAB ONE (15:47)
--- NOTE | 2023-08-01 15:57 | ER ---
Nurse's Notes [facility] Name: Yong Rojas Age: 23 yrs Sex: Male : 2000 Arrival Date: 08/01/2023 Time: 15:26 Bed DX4 Private MD: Diagnosis: Nausea with vomiting, unspecified Presentation: 07/31 15:42 Chief complaint: Patient states: VOMITING x1 THIS AM. Coronavirus screen: At this time, ll1 the client does not indicate any symptoms associated with coronavirus-19. Ebola Screen: No symptoms or risks identified at this time. Initial Sepsis Screen: Does the patient meet any 2 criteria? No. Patient's initial sepsis screen is negative. Does the patient have a suspected source of infection? No. Patient's initial sepsis screen is negative. Risk Assessment: Do you want to hurt yourself or someone else? Patient reports no desire to harm self or others. Onset of symptoms is unknown. 15:42 Method Of Arrival: Ambulatory ll1 15:42 Acuity: DARLYN 4 ll1 Triage Assessment: 15:43 General: Appears in no apparent distress. Behavior is calm, cooperative, appropriate ll1 for age. Pain: Denies pain. GI: Reports nausea, vomiting. Historical: - Allergies: 15:43 No Known Drug Allergies; ll1 - Home Meds: 15:43 None [Active]; ll1 - PSHx: 15:43 cyst; ll1 - Immunization history:: Adult Immunizations up to date. - Infectious Disease History:: Denies. - Social history:: Smoking status: Patient denies any tobacco usage or history of. Screenin:44 [facility] ED Fall Risk Assessment (Adult) History of falling in the last 3 months, ll1 including since admission No falls in past 3 months (0 pts). Abuse screen: Denies threats or abuse. Denies injuries from another. Nutritional screening: No deficits noted. Tuberculosis screening: No symptoms or risk factors identified. Assessment: 15:44 General: SEE TRIAGE NOTE. ll1 16:00 Reassessment: No changes from previously documented assessment. Patient and/or family ll1 updated on plan of care and expected duration. Pain level reassessed. Patient is alert, oriented x 3, equal unlabored respirations, skin warm/dry/pink. 16:01 GI: Abdomen is flat. ll1 Vital Signs: 15:42 BP 147 / 76; Pulse 71; Resp 16; Temp 97.2; Pulse Ox 100% ; ll1 15:42 Weight 72.57 kg; Height 5 ft. 8 in. ; ll1 15:42 Body Mass Index 24.33 (72.57 kg, 172.72 cm) ll1 ED Course: 15:28 Patient arrived in ED. rg4 15:29 Isha López PA-C [facility]. sb4 15:29 Rayray Ramos MD is Attending Physician. sb4 15:43 Triage completed. ll1 15:43 Arm band placed on. ll1 15:44 Patient has correct armband on for positive identification. ll1 15:49 Ortiz Vyas, RN is Primary Nurse. 16:01 Provided Education on: N/A. ll1 16:01 No provider procedures requiring assistance completed. Patient did not have IV access ll1 during this emergency room visit. Administered Medications: 15:49 Drug: Ondansetron Oral Disintegrating Tablet Oral Disintegrating Tablet 4 mg PO once bp Route: PO; 16:01 Follow up: Response: No adverse reaction; Nausea is decreased ll1 Medication: 15:44 VIS not applicable for this client. ll1 Outcome: 15:56 Discharge ordered by . sb4 16:01 Discharged to home ambulatory, ll1 16:01 Condition: stable 16:01 Discharge instructions given to patient, Instructed on discharge instructions, follow up and referral plans. medication usage, Demonstrated understanding of instructions, follow-up care, medications, Prescriptions given X 1, 16:01 Patient left the ED. 1 Signatures: [place] 4 Ortiz Vyas RN RN Qamar Cheung RN RN 1 Isha López PA-C PA-C 4
--- NOTE | 2023-08-01 15:57 | EDPHYS ---
Physician Documentation [facility] Name: Yong Rojas Age: 23 yrs Sex: Male : 2000 Arrival Date: 08/01/2023 Time: 15:26 Bed DX4 Private MD: ED Physician Rayray Ramos HPI: 07/31 15:38 This 23 yrs old Black Male presents to ER via Unassigned with complaints of Vomiting. sb4 15:38 nauseated x 2 days. vomited once this morning. has eaten and drank since without sb4 vomitus. states he still feels nauseated. no other associated signs and symptoms- denies abdominal pain, diarrhea, fever, sick contacts. Historical: - Allergies: 15:43 No Known Drug Allergies; ll1 - Home Meds: 15:43 None [Active]; ll1 - PSHx: 15:43 cyst; ll1 - Immunization history:: Adult Immunizations up to date. - Infectious Disease History:: Denies. - Social history:: Smoking status: Patient denies any tobacco usage or history of. ROS: 15:38 Constitutional: Negative for fever, chills, and weight loss, sb4 15:38 Abdomen/GI: Positive for nausea and vomiting, 15:38 All other systems are negative, Exam: 15:38 Constitutional: This is a well developed, well nourished patient who is awake, alert, sb4 and in no acute distress. Head/Face: Normocephalic, atraumatic. Eyes: Extra-ocular motions intact. Periorbital areas with no swelling, redness, or edema. ENT: Mucous membranes moist. Cardiovascular: Regular rate and rhythm with a normal S1 and S2. Respiratory: Lungs have equal breath sounds bilaterally, clear to auscultation and percussion. No rales, rhonchi or wheezes noted. No increased work of breathing, no retractions or nasal flaring. Abdomen/GI: Soft, non-tender, no distension. Skin: Warm, dry with normal turgor. Normal color with no rashes, no lesions, and no evidence of cellulitis. MS/ Extremity: Pulses equal, no cyanosis. Neurovascular intact. Full, normal range of motion. Neuro: Awake and alert, GCS 15, oriented to person, place, time, and situation. Motor strength 5/5 in all extremities. Sensory grossly intact. Vital Signs: 15:42 BP 147 / 76; Pulse 71; Resp 16; Temp 97.2; Pulse Ox 100% ; ll1 15:42 Weight 72.57 kg; Height 5 ft. 8 in. ; ll1 15:42 Body Mass Index 24.33 (72.57 kg, 172.72 cm) ll1 MDM: 15:32 Patient medically screened. sb4 15:38 Data reviewed: vital signs, nurses notes. sb4 15:56 Counseling: I had a detailed discussion with the patient and/or guardian regarding the sb4 historical points, exam findings, and any diagnostic results supporting the discharge/admit diagnosis, the presence of at least one elevated blood pressure reading (>120/80) during this emergency department visit, to return to the emergency department if symptoms worsen or persist or if there are any questions or concerns that arise at home. 07/31 15:36 Order name: PO challenge; Complete Time: 15:49 sb4 Administered Medications: 15:49 Drug: Ondansetron Oral Disintegrating Tablet Oral Disintegrating Tablet 4 mg PO once bp Route: PO; 16:01 Follow up: Response: No adverse reaction; Nausea is decreased ll1 Disposition: 16:06 Co-signature as Attending Physician, Rayray Ramos MD I reviewed the patient's care rt provided by the Advanced Practice Provider and agree with the diagnosis and treatment plan. Disposition Summary: 08/01/23 15:56 Discharge Ordered Notes: Location: Home sb4 Problem: new sb4 Symptoms: have improved sb4 Condition: Stable sb4 Diagnosis - Nausea with vomiting, unspecified sb4 Followup: sb4 - With: Emergency Department - When: As needed - Reason: Trouble breathing, Worsening of condition Discharge Instructions: - Discharge Summary Sheet sb4 - Nausea and Vomiting, Adult sb4 Forms: - Work release form sb4 - Thank You Letter sb4 - Patient Portal Instructions sb4 - Leadership Thank You Letter sb4 Prescriptions: - Zofran 4 mg Oral Tablet - take 1 tablet ORAL route every 12 hours As needed; 20 tablet; Refills: 0, sb4 Product Selection Permitted Signatures: Ortiz Vyas RN RN bp Qamar Cheung RN RN ll1 Isha López PA-C PA-C sb4 Rayray Ramos MD MD rt
[2023-08-01 16:45] VITALS: BP 147/76; TEMP 97.2; O2SAT 100
== END 2023-08-01 16:01 | disposition home or self-care (01) ==
LOC: ER 15:26
DX: R11.2 Nausea with vomiting, unspecified (principal)
CPT/HCPCS: 99283; Q0162

== ENCOUNTER 2023-08-15 23:38 | Emergency (ER) | payer OTHER ==
--- NOTE | 2023-08-16 00:29 | ER ---
Nurse's Notes [facility] Name: Yong Rojas Age: 23 yrs Sex: Male : 2000 Arrival Date: 08/15/2023 Time: 23:38 Bed 11 Private MD: Diagnosis: Fever, unspecified;Acute upper respiratory infection, unspecified Presentation: 08/14 23:45 Chief complaint: Patient states: At home I had a fever of 101 and 103.7. Coronavirus jb4 screen: At this time, the client does not indicate any symptoms associated with coronavirus-19. Ebola Screen: No symptoms or risks identified at this time. Initial Sepsis Screen: Does the patient meet any 2 criteria? No. Patient's initial sepsis screen is negative. Does the patient have a suspected source of infection? No. Patient's initial sepsis screen is negative. Risk Assessment: Do you want to hurt yourself or someone else? Patient reports no desire to harm self or others. Onset of symptoms was August 15, 2023. Transition of care: patient was not received from another setting of care. 23:45 Method Of Arrival: Ambulatory jb4 23:45 Acuity: DARYLN 4 jb4 Historical: - Allergies: 23:47 No Known Allergies; jb4 - PMHx: 23:47 None; jb4 - PSHx: 23:47 cyst; jb4 - Immunization history:: Adult Immunizations up to date, Flu vaccine status is unknown. - Infectious Disease History:: Denies. - Social history:: Smoking status: Reported history of juuling and/or vaping. Screenin/04 01:17 [facility] ED Fall Risk Assessment (Adult) History of falling in the last 3 months, jb4 including since admission No falls in past 3 months (0 pts) Confusion or Disorientation No (0 pts) Score/Fall Risk Level 0 - 2 = Low Risk Oriented to surroundings, Maintained a safe environment. Abuse screen: Denies threats or abuse. Nutritional screening: No deficits noted. Tuberculosis screening: No symptoms or risk factors identified. Assessment: 08/14 23:45 General: Appears in no apparent distress. comfortable, Behavior is calm, cooperative, jb4 appropriate for age. Pain: Denies pain. Neuro: Level of Consciousness is awake, alert, obeys commands, Oriented to person, place, time, situation. Cardiovascular: Patient's skin is warm and dry. Respiratory: Airway is patent Respiratory effort is even, unlabored, Respiratory pattern is regular, symmetrical. GI: No signs and/or symptoms were reported involving the gastrointestinal system. : No signs and/or symptoms were reported regarding the genitourinary system. EENT: No signs and/or symptoms were reported regarding the EENT system. Derm: Skin is intact, Skin is pink, warm \T\ dry. Musculoskeletal: Circulation, motion, and sensation intact. Range of motion: intact in all extremities. 08/15 00:34 Reassessment: D/c pending test results. jb4 01:17 Reassessment: Patient appears in no apparent distress at this time. Patient and/or jb4 family updated on plan of care and expected duration. Pain level reassessed. Patient is alert, oriented x 3, equal unlabored respirations, skin warm/dry/pink. Vital Signs: 08/14 23:45 BP 142 / 101; Pulse 56; Resp 16; Temp 98.6(O); Pulse Ox 100% on R/A; Weight 72.57 kg jb4 (R); Height 5 ft. 8 in. ; Pain 0/10; 23:45 Body Mass Index 24.33 (72.57 kg, 172.72 cm) jb4 23:45 Pain Scale: Adult jb4 ED Course: 23:41 Patient arrived in ED. jj6 23:47 Triage completed. jb4 23:47 Nicolás Victor MD is Attending Physician. madelyn 23:47 Arm band placed on right wrist. jb4 23:59 Strep Sent. tl4 23:59 SARS RAPID Sent. tl4 23:59 Flu Sent. tl4 08/15 01:17 Patient has correct armband on for positive identification. Bed in low position. Call jb4 light in reach. Side rails up X 1. Provided Education on: discharge instructions. 01:17 No provider procedures requiring assistance completed. Patient did not have IV access jb4 during this emergency room visit. Administered Medications: No medications were administered Medication: 01:17 VIS not applicable for this client. jb4 Outcome: 00:28 Discharge ordered by . madelyn 01:17 Discharged to home ambulatory, jb4 01:17 Condition: stable 01:17 Discharge instructions given to patient, Instructed on discharge instructions, follow up and referral plans. medication usage, Demonstrated understanding of instructions, follow-up care, medications, Prescriptions given X 1, 01:18 Patient left the ED. jb4 Signatures: Nicolás Victor MD MD cha Bryson, James, RN RN jb4 Grace [email or web address] Enio Newman RN RN tl4
--- NOTE | 2023-08-16 00:29 | EDPHYS ---
Physician Documentation [facility] Name: Yong Rojas Age: 23 yrs Sex: Male : 2000 Arrival Date: 08/15/2023 Time: 23:38 Bed 11 Private MD: ED Physician Nicolás Victor HPI: 08/15 00:25 This 23 yrs old Black Male presents to ER via Ambulatory with complaints of Fever. madelyn 00:25 The patient reports fever, not measured (subjective). Onset: The symptoms/episode madelyn began/occurred today. Modifying factors: there are no obvious modifying factors. Associated signs and symptoms: Pertinent positives: cough. Severity of symptoms: At their worst the symptoms were mild in the emergency department the symptoms are unchanged. The patient has experienced similar episodes in the past, a few times. Historical: - Allergies: 08/14 23:47 No Known Allergies; jb4 - PMHx: 23:47 None; jb4 - PSHx: 23:47 cyst; jb4 - Immunization history:: Adult Immunizations up to date, Flu vaccine status is unknown. - Infectious Disease History:: Denies. - Social history:: Smoking status: Reported history of juuling and/or vaping. ROS: 08/15 00:26 Constitutional: Negative for fever, chills, and weight loss, Eyes: Negative for injury, madelyn pain, redness, and discharge, ENT: Negative for injury, pain, and discharge, Neck: Negative for injury, pain, and swelling, Cardiovascular: Negative for chest pain, palpitations, and edema, Respiratory: Negative for shortness of breath, cough, wheezing, and pleuritic chest pain, Abdomen/GI: Negative for abdominal pain, nausea, vomiting, diarrhea, and constipation, Back: Negative for injury and pain, : Negative for injury, bleeding, discharge, and swelling, MS/Extremity: Negative for injury and deformity, Skin: Negative for injury, rash, and discoloration, Neuro: Negative for headache, weakness, numbness, tingling, and seizure, Exam: 00:26 Constitutional: This is a well developed, well nourished patient who is awake, alert, madelyn and in no acute distress. Head/Face: Normocephalic, atraumatic. Eyes: Pupils equal round and reactive to light, extra-ocular motions intact. Lids and lashes normal. Conjunctiva and sclera are non-icteric and not injected. Cornea within normal limits. Periorbital areas with no swelling, redness, or edema. ENT: Nares patent. No nasal discharge, no septal abnormalities noted. Tympanic membranes are normal and external auditory canals are clear. Oropharynx with no redness, swelling, or masses, exudates, or evidence of obstruction, uvula midline. Mucous membranes moist. Neck: Trachea midline, no thyromegaly or masses palpated, and no cervical lymphadenopathy. Supple, full range of motion without nuchal rigidity, or vertebral point tenderness. No Meningismus. Chest/axilla: Normal chest wall appearance and motion. Nontender with no deformity. No lesions are appreciated. Cardiovascular: Regular rate and rhythm with a normal S1 and S2. No gallops, murmurs, or rubs. Normal PMI, no JVD. No pulse deficits. Respiratory: Lungs have equal breath sounds bilaterally, clear to auscultation and percussion. No rales, rhonchi or wheezes noted. No increased work of breathing, no retractions or nasal flaring. Abdomen/GI: Soft, non-tender, with normal bowel sounds. No distension or tympany. No guarding or rebound. No evidence of tenderness throughout. Back: No spinal tenderness. No costovertebral tenderness. Full range of motion. Male : Normal genitalia with no discharge or lesions. Skin: Warm, dry with normal turgor. Normal color with no rashes, no lesions, and no evidence of cellulitis. MS/ Extremity: Pulses equal, no cyanosis. Neurovascular intact. Full, normal range of motion. Neuro: Awake and alert, GCS 15, oriented to person, place, time, and situation. Cranial nerves II-XII grossly intact. Motor strength 5/5 in all extremities. Sensory grossly intact. Cerebellar exam normal. Normal gait. Psych: Awake, alert, with orientation to person, place and time. Behavior, mood, and affect are within normal limits. Vital Signs: 08/14 23:45 BP 142 / 101; Pulse 56; Resp 16; Temp 98.6(O); Pulse Ox 100% on R/A; Weight 72.57 kg jb4 (R); Height 5 ft. 8 in. ; Pain 0/10; 23:45 Body Mass Index 24.33 (72.57 kg, 172.72 cm) jb4 23:45 Pain Scale: Adult jb4 MDM: 23:47 Patient medically screened. [facility] 08/15 00:27 Differential diagnosis: viral Infection, bacterial infection, URI, bronchitis, madelyn pneumonia UTI, gastroenteritis, meningitis. Differential Diagnosis sepsis, flu. Data reviewed: vital signs, nurses notes, lab test result(s), Flu:. Consideration of Admission/Observation Escalation of care including admission/observation considered. I considered the following discharge prescriptions or medication management in the emergency department Medications were administered in the Emergency Department. See MAR. Independent interpretation of the following test(s) in the Emergency Department. Test considered but Not performed: Labs: no cbc , no comp met. 08/14 23:50 Order name: Flu [facility] 08/14 23:50 Order name: SARS RAPID [facility] 08/14 23:50 Order name: Strep [facility] 08/15 01:01 Order name: Throat Culture EDMS Administered Medications: No medications were administered Disposition Summary: 08/16/23 00:28 Discharge Ordered Notes: Location: Home [facility] Problem: new [facility] Symptoms: have improved [facility] Condition: Stable [facility] Diagnosis - Fever, unspecified [facility] - Acute upper respiratory infection, unspecified madelyn Followup: [facility] - With: Private Physician - When: 2 - 3 days - Reason: Recheck today's complaints, Continuance of care, Re-evaluation by your physician Discharge Instructions: - Discharge Summary Sheet madelyn - Fever, Adult madelyn - Upper Respiratory Infection, Adult madelyn - Cool Mist Vaporizer madelyn - Upper Respiratory Infection, Adult, [id number] madelyn - Cough, Adult madelyn Forms: - Medication Reconciliation Form [facility] - Antibiotic Education [facility] - Prescription Opioid Use [facility] - Patient Portal Instructions [facility] - Leadership Thank You Letter [facility] - Work release form jb4 Prescriptions: - Zithromax Z-Mahad 250 mg Oral Tablet - take 1 tablet ORAL route as directed for 5 days Day 1 - take two (2) tablets [facility] one time. Day 2, 3, 4 , 5 take one (1) tablet once daily.; 6 tablet; Refills: 0, Product Selection Permitted Signatures: Dispatcher [employer] EDNicolás Isidro MD MD cha Bryson, James, RN RN jb4
[2023-08-16 00:57] LABS: SARS-CoV-2 Antigen CONTROL BLUE LINE VIS/BG OK; SARS-CoV-2 Antigen Rapid Res Negative (Negative)
[2023-08-16 15:01] VITALS: BP 142/101; TEMP 98.6; O2SAT 100
== END 2023-08-16 01:18 | disposition home or self-care (01) ==
LOC: ER 23:38
DX: J06.9 Acute upper respiratory infection, unspecified (principal); Z11.52 Encounter for screening for COVID-19
CPT/HCPCS: 36415; 87070; 87081; 87804; 87811; 99283

== ENCOUNTER 2024-02-05 12:52 | Emergency (ER) | payer OTHER ==
[2024-02-05 14:19] LABS: Absolute Lymphocytes (CBC) 0.2 K/uL (0.7-4.9); Absolute Monocytes 0.4 K/uL (0.1-1.3); Absolute Neutrophil 6.8 K/uL (1.8-8.0); Basophils % 0.2 % (0-1.3); Eosinophils % 0.1 % (0-4.4); Hemoglobin 15.7 g/dL (13.6-17.9); Lymphocytes % 2.3 % (15.3-44.8); MCH 31.1 pg (27.0-35.0); MCV 91.3 fL (80-100); MPV 8.8 fL (7.6-11.3); Monocytes % 5.4 % (3.3-12.3); Nucleated Red Blood Cells % 0.2 % (0-0); Platelets 130 thou/uL (152-406); RBC Red Blood Cell Count 5.04 M/uL (4.33-5.43); Red Cell Distribution Width 12.4 % (12.1-15.2)
[2024-02-05 14:41] LABS: ALT/SGPT 15 U/L (16-61); Albumin 4.2 g/dL (3.4-5.0); Albumin/Globulin Ratio 1.1 (1.1-1.8); Alkaline Phosphatase 73 U/L (45-117); Anion Gap 7.8 mEq/L (5.0-15.0); BUN Blood Urea Nitrogen 13 mg/dL (7-18); Bicarbonate 30 mEq/L (21-32); Bilirubin Total 1.1 mg/dL (0.2-1.0); Globulin 3.7 g/dL (2.3-3.5); Glomerular Filtration Rate 82 ml/min (=/>90); Glucose Level 130 mg/dL (74-106); Lipase 20 U/L (13-75); Potassium 3.8 mEq/L (3.5-5.1); Protein, Total 7.9 g/dL (6.4-8.2); Sodium Level 141 mEq/L (136-145)
[2024-02-05 14:42] LABS: AST/SGOT < 10 U/L (15-37)
--- NOTE | 2024-02-05 14:53 | RAD REPORT ---
EXAMINATION: XR Ankle Right 3 View CLINICAL INDICATION: Male, 23 years old. [facility] MAIN Pain;Swelling Bed Name: IW6 TECHNIQUE: 3 view radiographs of the right ankle were obtained. COMPARISON: No prior exam. FINDINGS: Joint alignment is maintained. Mild degenerative changes at the base of the first metatarsa l. Mild soft tissue swelling about the lateral malleolus. Small osseous density adjacent to the tip of the lateral malleolus, which may relate to soft tissue mineralization versus a small avulsion frac ture. IMPRESSION: Small osseous density adjacent to the tip of the lateral malleolus, may relate to a small avulsion fr acture versus soft tissue mineralization.
--- NOTE | 2024-02-05 14:55 | RAD REPORT ---
EXAMINATION: XR Foot Right 3 View CLINICAL INDICATION: Male, 23 years old. [facility] MAIN PAIN Bed Name: IW6 TECHNIQUE: 3 view radiographs of the right foot were obtained. COMPARISON: No prior exam. FINDINGS: No evidence of fracture or dislocation. Normal alignment. No evidence of arthropathy or oth er focal bone lesion. Soft tissues are unremarkable. No soft tissue swelling. No significant degenerative changes. IMPRESSION: No acute or significant abnormalities.
--- NOTE | 2024-02-05 14:58 | RAD REPORT ---
EXAMINATION: CT Abdomen Pelvis W Contrast CLINICAL INDICATION: Male, 23 years old. ABD PAIN TECHNIQUE: CT abdomen and pelvis was performed, after the administration of 100 mL of Isovue-300 intr avenously, as per department protocol. Axial, sagittal and coronal reconstructions were obtained. One or more of the following dose reduction techniques were used: Automated exposure control, adjustm ent of the mA and kV according to patient size, and iterative reconstruction. Unless otherwise specified, incidental findings do not require dedicated imaging follow-up. COMPARISON: No prior exam. FINDINGS: LOWER CHEST: The visualized lung bases are clear. LIVER: Normal in size and contour. No focal lesion. BILIARY SYSTEM: No suspicious abnormalities. SPLEEN: Normal size. No focal lesion. PANCREAS: No mass, ductal dilation, or fabio-pancreatic fluid. ADRENALS: Normal; no mass. KIDNEYS: Normal size and contour. No hydronephrosis. URINARY BLADDER: Unremarkable. GASTROINTESTINAL TRACT: No evidence of free air, significant intra-abdominal free fluid, bowel obstru ction or abscess. Fluid opacification of nondistended mid to distal small bowel loops, nonspecific, may relate to mild enteritis or diarrheal state. APPENDIX: Normal appendix. LYMPH NODES: No lymphadenopathy. MUSCULOSKELETAL: No acute or suspicious osseous abnormality. ADDITIONAL FINDINGS: None. IMPRESSION: No acute or concerning abnormalities seen in the abdomen or pelvis.
[2024-02-05] MEDS ORDERED: NA CHLORIDE 0.9% 1,000 ML ONE (17:29)
[2024-02-05] MEDS ORDERED: ONDANSETRON 4 MG/2 ML VIAL ONE (17:29)
[2024-02-05] MEDS ORDERED: FAMOTIDINE 20 MG/2 ML VIAL IV ONE (17:29)
[2024-02-05 18:31] LABS: Sqamous Epithelial <5 /HPF (None Seen); Urine Bacteria <20 /HPF (<20); Urine Bilirubin NEGATIVE (Negative); Urine Blood Negative (Negative); Urine Clarity Clear (Clear); Urine Color Light-Yellow (Yellow); Urine Culture Reflex Order NOT NEEDED; Urine Glucose NEGATIVE (Negative); Urine Ketones NEGATIVE (Negative); Urine Microscopic Reflex YN ORDER UMIC; Urine Nitrite NEGATIVE (Negative); Urine Protein NEGATIVE (Negative); Urine RBC <5 /HPF (None Seen); Urine Urobilinogen Normal (Normal); Urine WBC <5 /HPF (<5); Urine pH 5.5 (5.0-7.0)
[2024-02-05 18:41] LABS: Specific Gravity > 1.030 (1.005-1.030)
[2024-02-05 18:50] LABS: Barbiturates NEGATIVE (NEGATIVE); Benzodiazepines NEGATIVE (NEGATIVE); Cocaine NEGATIVE (NEGATIVE); METHAMPHETAM NEGATIVE (NEGATIVE); Methadone NEGATIVE (NEGATIVE); Opiates NEGATIVE (NEGATIVE); Phencyclidine NEGATIVE (NEGATIVE); THC Cannibis NEGATIVE (NEGATIVE)
--- NOTE | 2024-02-05 18:54 | EDPHYS ---
Physician Documentation [facility] Name: Yong Rojas Age: 23 yrs Sex: Male : 2000 Arrival Date: 02/05/2024 Time: 12:52 Bed 11 Private MD: ED Physician Nicolás Victor HPI: 02/04 13:35 This 23 yrs old Black Male presents to ER via Ambulatory with complaints of cp Nausea/Vomiting, Ankle Swelling. 13:35 The patient presents to the emergency department with nausea, that is moderate, cp vomiting, that is intermittent, abdominal pain, described as constant. Onset: The symptoms/episode began/occurred last night. Possible causes: unknown. Associated signs and symptoms: Pertinent negatives: constipation, diarrhea, fever, GI bleeding. Patient also c/o right ankle pain due to injury while playing basketball several days ago. Historical: - Allergies: 13:33 No Known Allergies; db - Home Meds: 17:44 None [Active]; tl4 - PMHx: 13:33 None; db - PSHx: 13:33 cyst; db - Immunization history:: Adult Immunizations unknown. - Infectious Disease History:: Denies. - Social history:: Smoking status: Patient denies any tobacco usage or history of. ROS: 13:40 Constitutional: Positive for poor PO intake, Negative for body aches, chills, fever, cp 13:40 Eyes: Negative for injury, pain, redness, and discharge, cp 13:40 ENT: Negative for drainage from ear(s), ear pain, difficulty swallowing, difficulty handling secretions, 13:40 Abdomen/GI: Positive for abdominal pain, nausea and vomiting, anorexia, Negative for diarrhea, constipation, hematemesis, 13:40 MS/extremity: Positive for pain, swelling, tenderness, of the right ankle, 13:40 Neuro: Negative for altered mental status, dizziness, headache, 13:40 All other systems are negative, Exam: 13:45 Constitutional: The patient appears in no acute distress, alert, awake, non-toxic, well cp developed, well nourished, uncomfortable, 13:45 Head/Face: Normocephalic, atraumatic. cp 13:45 Eyes: Periorbital structures: appear normal, Conjunctiva: normal, no exudate, no injection, Sclera: no appreciated abnormality, Lids and lashes: appear normal, bilaterally, 13:45 ENT: External ear(s): are unremarkable, Nose: is normal, Mouth: Lips: moist, Oral mucosa: pink and intact, moist, Posterior pharynx: Airway: no evidence of obstruction, patent, 13:45 Chest/axilla: Inspection: normal, Palpation: is normal, no crepitus, no tenderness, 13:45 Cardiovascular: Rate: normal, Rhythm: regular, 13:45 Respiratory: the patient does not display signs of respiratory distress, Respirations: normal, no use of accessory muscles, no retractions, labored breathing, is not present, Breath sounds: are clear throughout, no decreased breath sounds, no stridor, no wheezing, 13:45 Abdomen/GI: Inspection: abdomen appears normal, Bowel sounds: active, all quadrants, Palpation: soft, in all quadrants, moderate abdominal tenderness, in all quadrants, 13:45 Back: pain, is absent, ROM is normal, 13:45 Musculoskeletal/extremity: Extremities: noted in the right ankle and right foot: swelling and tenderness of right lateral malleolus and lateral side of foot, ROM: limited passive range of motion due to pain, in the right ankle, the right foot Sensation intact. Vital Signs: 13:32 BP 118 / 67; Pulse 87; Resp 18; Temp 98.8; Pulse Ox 100% ; Weight 79.38 kg; Height 5 db ft. 7 in. ; Pain 10/10; 17:45 BP 132 / 89; Pulse 76; Resp 18; Pulse Ox 100% on R/A; tl4 19:55 BP 132 / 64; Pulse 65; Resp 17 S; Pulse Ox 99% on R/A; ha1 13:32 Body Mass Index 27.41 (79.38 kg, 170.18 cm) db 13:32 Pain Scale: Adult db MDM: 13:32 Medical Screening Exam initiated cp 18:52 Data reviewed: vital signs, nurses notes, lab test result(s), radiologic studies, CT cp scan, plain films, and as a result, I will discharge patient. 18:52 Differential diagnosis: gastritis, pancreatitis, appendicitis, viral gastroenteritis, cp gastroenteritis. I considered the following discharge prescriptions or medication management in the emergency department Medications were administered in the Emergency Department. See MAR. Counseling: I had a detailed discussion with the patient and/or guardian regarding the historical points, exam findings, and any diagnostic results supporting the discharge/admit diagnosis, lab results, radiology results, to return to the emergency department if symptoms worsen or persist or if there are any questions or concerns that arise at home. Response to treatment: the patient's symptoms have markedly improved after treatment, and as a result, I will discharge patient. 02/04 13:32 Order name: CBC with Diff; Complete Time: 16:25 cp 02/04 16:26 Interpretation: Normal except: PLT 130; NA% 92.0; LYM% 2.3; LYMA 0.2. cp 02/04 13:32 Order name: CMP; Complete Time: 16:25 cp 02/04 16:26 Interpretation: Normal except: GLUC 130; GFR 82; AST < 10; ALT 15; BILIT 1.1; GLOB 3.7. cp 02/04 13:32 Order name: Lipase; Complete Time: 16:25 cp 02/04 13:32 Order name: Urinalysis w/ reflexes; Complete Time: 18:51 cp 02/04 13:32 Order name: UDS; Complete Time: 18:51 cp 02/04 18:51 Interpretation: Reviewed. 02/04 13:32 Order name: XRAY Ankle RIGHT 3 view; Complete Time: 16:25 cp 02/04 16:28 Interpretation: Report reviewed. 02/04 13:32 Order name: XRAY Foot RIGHT 3 View; Complete Time: 16:25 cp 02/04 13:32 Order name: CT Abd/Pelvis - IV Contrast Only; Complete Time: 16:25 cp 02/04 13:32 Order name: IV Saline Lock; Complete Time: 14:12 cp 02/04 13:32 Order name: Labs collected and sent; Complete Time: 14:12 cp 02/04 16:28 Order name: Walking boot; Complete Time: 20:04 cp 02/04 16:28 Order name: PO challenge; Complete Time: 18:04 cp Administered Medications: 17:47 Drug: NS 0.9% IV 1000 ml IV at 1000 ml once; to be given as a bolus over 60 minutes tl4 Route: IV; Rate: 1000 ml; Site: right antecubital; Delivery: Primary tubing; 20:14 Follow up: Response: No adverse reaction; IV Status: Completed infusion; IV Intake: ha1 1000ml 17:48 Drug: Famotidine IVP 20 mg IVP once; dilute with 10 mL 0.9% NaCl; give over 2 minutes tl4 Route: IVP; Infused Over: 2 mins; Site: right antecubital; 20:15 Follow up: Response: No adverse reaction; Marked relief of symptoms ha1 17:48 Drug: Ondansetron IVP 4 mg IVP once; over 2 minutes Route: IVP; Infused Over: 2 mins; tl4 Site: right antecubital; 20:15 Follow up: Response: No adverse reaction; Marked relief of symptoms ha1 19:13 Drug: Promethazine IM 25 mg IM once {Note: administered IV per C Page, mixed in 50mL tl4 NS, administered right antecubital.} Route: IM; Site: Other; 19:40 Follow up: Response: No adverse reaction; Marked relief of symptoms ha1 Disposition Summary: 02/05/24 18:53 Discharge Ordered Notes: Location: Home cp Problem: new cp Symptoms: have improved cp Condition: Stable cp Diagnosis - Nausea with vomiting, unspecified cp - Abdominal pain, unspecified cp - Avulsion Fracture Lateral malleolus Right Ankle cp Followup: cp - With: Private Physician - When: 2 - 3 days - Reason: Worsening of condition Discharge Instructions: - Discharge Summary Sheet cp - Abdominal Pain, Adult cp - Ankle Fracture cp - Nausea and Vomiting, Adult cp Forms: - Medication Reconciliation Form cp - Antibiotic Education cp - Prescription Opioid Use cp - Patient Portal Instructions cp - Leadership Thank You Letter cp Prescriptions: - Pepcid 20 mg Oral Tablet - take 1 tablet ORAL route every 12 hours for 10 days; 20 tablet; Refills: 0, cp Product Selection Permitted - Zofran 4 mg Oral Tablet - take 1 tablet ORAL route every 12 hours As needed; 20 tablet; Refills: 0, cp Product Selection Permitted Signatures: Dispatcher [employer] EDMS Nicolás Bustos PA PA cp Sowmya Vicente RN RN db Enio Newman RN RN tl4 Marge Delgado RN ha1 Corrections: (The following items were deleted from the chart) 13:33 13:33 CBC+H.LAB.BRZ ordered. EDMS EDMS 13:33 13:33 COMPREHENSIVE METABOLIC PANEL+C.LAB.BRZ ordered. EDMS EDMS 13:33 13:33 LIPASE+C.LAB.BRZ ordered. EDMS EDMS 13:33 13:33 Urinalysis+U.LAB.BRZ ordered. EDMS EDMS 13:33 13:33 URINE DRUG SCREEN+UC.LAB.BRZ ordered. EDMS EDMS 13:33 13:33 Ankle Right 3 View+RAD.RAD.BRZ ordered. EDMS EDMS 13:33 13:33 Foot Right 3 View+RAD.RAD.BRZ ordered. EDMS EDMS 13:33 13:33 Abdomen Pelvis W Con+CT.RAD.BRZ ordered. EDMS EDMS
--- NOTE | 2024-02-05 18:54 | ER ---
Nurse's Notes [facility] [place], [place] Name: Yong Rojas Age: 23 yrs Sex: Male : 2000 Arrival Date: 02/05/2024 Time: 12:52 Bed 11 Private MD: Diagnosis: Nausea with vomiting, unspecified;Abdominal pain, unspecified;Avulsion Fracture Lateral malleolus Right Ankle Presentation: 02/04 13:32 Chief complaint: Patient states: ABD PAIN SINCE LAST NIGHT WITH N/V. STATES RIGHT ANKLE db PAIN AND SWELLING SINCE FRIDAY FROM PLAYING BASKETBALL. Coronavirus screen: Client denies travel out of the [place] in the last 14 days. At this time, the client does not indicate any symptoms associated with coronavirus-19. Ebola Screen: Patient negative for fever greater than or equal to 101.5 degrees Fahrenheit, and additional compatible Ebola Virus Disease symptoms Patient denies exposure to infectious person. Patient denies travel to an Ebola-affected area in the 21 days before illness onset. No symptoms or risks identified at this time. Initial Sepsis Screen: Does the patient meet any 2 criteria? No. Patient's initial sepsis screen is negative. Does the patient have a suspected source of infection? No. Patient's initial sepsis screen is negative. Risk Assessment: Do you want to hurt yourself or someone else? Patient reports no desire to harm self or others. Onset of symptoms was February 05, 2024. 13:32 Method Of Arrival: Ambulatory db 13:32 Acuity: DARLYN 3 db Triage Assessment: 13:33 General: Appears in no apparent distress. comfortable, Behavior is calm, cooperative. db Pain: Complains of pain in abdomen and right foot. Neuro: Level of Consciousness is awake, alert, obeys commands, Oriented to person, place, time, situation. Respiratory: Airway is patent Respiratory effort is even, unlabored, Respiratory pattern is regular, symmetrical. GI: Reports nausea, vomiting. Historical: - Allergies: 13:33 No Known Allergies; db - Home Meds: 17:44 None [Active]; tl4 - PMHx: 13:33 None; db - PSHx: 13:33 cyst; db - Immunization history:: Adult Immunizations unknown. - Infectious Disease History:: Denies. - Social history:: Smoking status: Patient denies any tobacco usage or history of. Screenin:45 [facility] ED Fall Risk Assessment (Adult) History of falling in the last 3 months, tl4 including since admission No falls in past 3 months (0 pts) Confusion or Disorientation No (0 pts) Intoxicated or Sedated No (0 pts) Impaired Gait No (0 pts) Mobility Assist Device Used No (0 pt) Altered Elimination No (0 pt) Score/Fall Risk Level 0 - 2 = Low Risk Oriented to surroundings, Maintained a safe environment, Educated pt \T\ family on fall prevention, incl call for assistance when getting out of bed, Assessed \T\ reinforced patient's understanding of fall precautions. Abuse screen: Denies threats or abuse. Denies injuries from another. Nutritional screening: No deficits noted. Tuberculosis screening: No symptoms or risk factors identified. Assessment: 17:42 General: Appears uncomfortable, Behavior is calm, cooperative. Pain: Complains of pain tl4 in abdomen and right foot. Neuro: Level of Consciousness is awake, alert, obeys commands, Oriented to person, place, time, situation. Cardiovascular: Denies chest pain, diaphoresis, fatigue, lightheadedness, nausea, palpitations, shortness of breath, syncope, Capillary refill < 3 seconds Patient's skin is warm and dry. Respiratory: Airway is patent Respiratory effort is even, unlabored, Respiratory pattern is regular, symmetrical, Breath sounds are clear bilaterally. Denies cough, shortness of breath. GI: Reports upper abdominal pain, nausea, vomiting. GI: Bowel sounds present X 4 quads. Abd is soft Abdomen is tender to palpation in right upper quadrant and left upper quadrant. GI: Abdomen is non-distended. : No signs and/or symptoms were reported regarding the genitourinary system. EENT: No signs and/or symptoms were reported regarding the EENT system. Derm: No signs and/or symptoms reported regarding the dermatologic system. Musculoskeletal: Reports pain in left foot. 19:35 Reassessment: Patient and/or family updated on plan of care and expected duration. Pain ha1 level reassessed. Patient is alert, oriented x 3, equal unlabored respirations, skin warm/dry/pink. pain 2/10 on right foot Patient states feeling better. Patient states symptoms have improved. 19:40 Reassessment: discharge delayed waiting on ortho boot. 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 Vital Signs: 13:32 BP 118 / 67; Pulse 87; Resp 18; Temp 98.8; Pulse Ox 100% ; Weight 79.38 kg; Height 5 db ft. 7 in. ; Pain 10/10; 17:45 BP 132 / 89; Pulse 76; Resp 18; Pulse Ox 100% on R/A; tl4 19:55 BP 132 / 64; Pulse 65; Resp 17 S; Pulse Ox 99% on R/A; ha1 13:32 Body Mass Index 27.41 (79.38 kg, 170.18 cm) db 13:32 Pain Scale: Adult db ED Course: 12:56 Patient arrived in ED. sj2 13:15 Nicolás Bustos PA is PHCP. cp 13:15 Nicolás Victor MD is Attending Physician. cp 13:33 Triage completed. db 13:33 Arm band placed on left wrist. Patient placed in waiting room. db 13:40 Radiology exam delayed due to IV insertion attempt and/or patient not having nj appropriate IV at this time. 13:40 Radiology exam delayed due to lab results not completed at this time. (BUN/Creatinine). nj 14:02 XRAY Ankle RIGHT 3 view In Process Unspecified. EDMS 14:02 XRAY Foot RIGHT 3 View In Process Unspecified. EDMS 14:12 CBC with Diff Sent. bc6 14:12 CMP Sent. bc6 14:12 Lipase Sent. bc6 14:21 CT Abd/Pelvis - IV Contrast Only In Process Unspecified. EDMS 17:34 Enio Newman, RN is Primary Nurse. tl4 17:45 Patient has correct armband on for positive identification. Placed in gown. Bed in low tl4 position. Call light in reach. Side rails up X2. Adult w/ patient. Provided Education on: ed process, call coyne. Client placed on continuous cardiac and pulse oximetry monitoring. NIBP monitoring applied. Door closed. Noise minimized. Lights dimmed. Moved to private room. Warm blanket given. 17:47 No provider procedures requiring assistance completed. Initial lab(s) drawn, by ED tl4 staff, sent to lab. Inserted saline lock: 20 gauge in right antecubital area, using aseptic technique. Blood collected. Flushed with 10 mL NS. 18:04 UDS Sent. tl4 18:04 Urinalysis w/ reflexes Sent. tl4 19:50 ortho boot on the right foot. ha1 20:13 IV discontinued, intact, bleeding controlled, No redness/swelling at site. Pressure ha1 dressing applied. Administered Medications: 17:47 Drug: NS 0.9% IV 1000 ml IV at 1000 ml once; to be given as a bolus over 60 minutes tl4 Route: IV; Rate: 1000 ml; Site: right antecubital; Delivery: Primary tubing; 20:14 Follow up: Response: No adverse reaction; IV Status: Completed infusion; IV Intake: ha1 1000ml 17:48 Drug: Famotidine IVP 20 mg IVP once; dilute with 10 mL 0.9% NaCl; give over 2 minutes tl4 Route: IVP; Infused Over: 2 mins; Site: right antecubital; 20:15 Follow up: Response: No adverse reaction; Marked relief of symptoms ha1 17:48 Drug: Ondansetron IVP 4 mg IVP once; over 2 minutes Route: IVP; Infused Over: 2 mins; tl4 Site: right antecubital; 20:15 Follow up: Response: No adverse reaction; Marked relief of symptoms ha1 19:13 Drug: Promethazine IM 25 mg IM once {Note: administered IV per Carmencita Bustos, mixed in 50mL tl4 NS, administered right antecubital.} Route: IM; Site: Other; 19:40 Follow up: Response: No adverse reaction; Marked relief of symptoms ha1 Medication: 17:45 VIS not applicable for this client. tl4 Intake: 20:14 IV: 1000ml; Total: 1000ml. ha1 Outcome: 18:53 Discharge ordered by . gisell 20:11 Discharged to home ambulatory, with family, ha1 20:11 Condition: stable 20:11 Discharge instructions given to patient, family, Instructed on discharge instructions, follow up and referral plans. Demonstrated understanding of instructions, follow-up care, medications, Prescriptions given X 3, 20:15 Patient left the ED. ha1 Signatures: Dispatcher [employer] EDMS Nicolás Bustos PA PA cp Jordan, Nathan nj Ayala, Heidy, RN RN ha1 Sowmya Vicente RN RN db Radha Self6 Enio Newman RN RN tl4 Marielle Mueller 2 Corrections: (The following items were deleted from the chart) 20:08 20:04 BP 132 / 64; Pulse 67 bpm; Resp 17 bpm Spontaneous; Pulse Ox 99% RA ha1 ha1
[2024-02-05] MEDS ORDERED: PROMETHAZINE INJ 25 MG/ML AMP ONE (19:07)
[2024-02-05] MEDS ORDERED: NA CHLORIDE 0.9% 50 ML ONE (19:11)
[2024-02-06 04:17] VITALS: TEMP 98.8
[2024-02-06 04:28] VITALS: BP 132/64; O2SAT 99
== END 2024-02-05 20:15 | disposition home or self-care (01) ==
LOC: ER 12:52
DX: R11.2 Nausea with vomiting, unspecified (principal); R10.84 Generalized abdominal pain; S82.61XA Displaced fracture of lateral malleolus of right fibula, initial encounter for closed fracture
CPT/HCPCS: 96361; 85025; 81001; 36415; 83690; 80053; 80307; 74177; 73630; 73610; 96375; 96372; 96374; 99284; Q9967; J2550; J2405; J7030